=== PATIENT | male | born 1980 | race Caucasian/White ===

== ENCOUNTER → 2017-08-20 | Day surgery (SDC) | payer BC ==
[~2017-08-20] MED LIST: Lactated Ringers 1,000 ML IV SCH; Propofol 200 MG/20 ML SDV IV ONE
--- NOTE | 2017-08-23 10:17 | OR ---
DATE OF OPERATION: 08/20/2017 PREOPERATIVE DIAGNOSIS: HEMATOCHEZIA. POSTOPERATIVE DIAGNOSIS: HEMATOCHEZIA. SURGEON: Yunior Fuller MD PROCEDURE: FULL-LENGTH COLONOSCOPY WITH POLYP REMOVAL X1. ANESTHESIA: ACID CHANGER. COMPLICATIONS: None. SPECIMEN: Hyperplastic polyp, splenic flexure. FINDINGS: 1. Full-length colonoscopy. 2. Hyperplastic polyps, splenic flexure. 3. Internal hemorrhoids. No active bleeding. RECOMMENDATIONS: Medical followup with AFSHAN Alba, the patient's primary in INDICATIONS: The patient has. apparently had on and off again hematochezia times over the last couple of years. It has gotten worse over the last week or two. He was sent for colonoscopy. DESCRIPTION OF PROCEDURE: The patient was prepped and draped, placed in the left lateral decubitus position. A lubricated Olympus colonoscope was inserted and easily advanced to the cecum. Direct visualization of the ileocecal valve and appendiceal orifice was accomplished. The bowel prep was adequate. Upon withdrawal, the cecum, ascending, transverse colon were completely benign. Just past the splenic flexure, the patient had a small hyperplastic polyp. I removed it with a cold forceps in its entirety. There is also a small area of inflammation here. It looked like it was nonspecific at the splenic flexure. Did a biopsy. The rest of the descending colon was benign. In the sigmoid area, I could find no signs of any polyps, masses, ulcerations, or diverticula. There were no signs of colitis or vascular abnormality. Rectosigmoid junction was benign. A thorough evaluation through the rectal vault was benign. Retroflexion shows some prominent vasculature in the perianal area, but no active hemorrhoidal disease or bleeding sites. No fissures or mass. Air was then suctioned, the scope was removed without complication. [place]/SHANICE /[id number]
== END ==
LOC: CC.SDS 11:34
PROVIDERS: ATTEND Family Medicine
DX: K92.1 Melena (principal); K63.5 Polyp of colon; K64.8 Other hemorrhoids; G47.33 Obstructive sleep apnea (adult) (pediatric); I10 Essential (primary) hypertension; M91.10 Juvenile osteochondrosis of head of femur [Legg-Calve-Perthes], unspecified leg; E66.9 Obesity, unspecified; Z68.34 Body mass index [BMI] 34.0-34.9, adult; Z79.899 Other long term (current) drug therapy
CPT/HCPCS: J2704; J7120